=== PATIENT | female | born 1965 | race Caucasian/White ===

== ENCOUNTER 2016-10-09 10:32 | Emergency (ER) | payer OTHER ==
[~2016-10-09] VITALS: Ht 170.2 cm; Wt 126.1 kg
[~2016-10-09 10:32] MED LIST: ATORVASTATIN CA40 MG PO; DILANTIN100 MG PO; GLIPIZIDE5 MG PO; HYDROCHLOROTH12.5 M1 PO; LOSARTAN-HCTZ1 EAC2 PO; LYRICA50 MG PO; MACROBID 100 M100 MG PO; NEOMYCIN-POLYMY10 ML OTIC; NORCO 5-325 TA1 EACH PO; TEGRETOL200 MG PO; TRAMADOL HCL50 MG PO; VITAMIN D400 UNIT PO
[2016-10-09] MEDS ORDERED: ZESTRIL5 MG PO (11:01)
[2016-10-09] MEDS ORDERED: INTRINSI B12-F1 EACH PO (11:02)
[2016-10-09] MEDS ORDERED: FOLGARD TABLET1 EAC1 PO (11:02)
--- NOTE | 2016-10-09 14:54 | EKG ---
[facility] [address] [facility] [address] [address] [place] [address] Signed Normal sinus rhythm Normal ECG No previous ECGs available Confirmed by RADHAMES SANTIAGO MD ([id number] on 10/09/2016 2:54:19 PM Electronically Signed By: RADHAMES SANTIAGO MD 10/09/16 1454 PATIENT NAME: PHYLLIS BARBOSA Electrocardiogram DATE OF : 69 PHYSICIAN: RADHAMES SANTIAGO MD REPORT #: [id number] REPORT IS CONFIDENTIAL AND NOT TO BE RELEASED WITHOUT AUTHORIZATION
== END 2016-10-09 13:17 | disposition home or self-care (01) ==
LOC: ED 10:32
DX: I10 Essential (primary) hypertension (principal); E11.9 Type 2 diabetes mellitus without complications; J44.9 Chronic obstructive pulmonary disease, unspecified; Z87.891 Personal history of nicotine dependence; Z90.710 Acquired absence of both cervix and uterus; Z88.0 Allergy status to penicillin; Z88.8 Allergy status to other drugs, medicaments and biological substances; Z79.899 Other long term (current) drug therapy
CPT/HCPCS: 80053; 84484; 85025; 93005; 93010; 96374; 96375; 99284; J1200; J1885; J2765